=== PATIENT | male | born 1975 | race Caucasian/White ===

== ENCOUNTER 2023-05-16 08:50 | Emergency (ER) | payer MEDICARE ==
[~2023-05-16] VITALS: Ht 182.9 cm; Wt 118.9 kg
[2023-05-16 08:53] VITALS: BP 177/96; PULSE 82; TEMP 99.2; O2SAT 97
[2023-05-16 09:31] VITALS: RESP 17
[2023-05-16] MEDS ORDERED: NIRM1TAB PO (10:05)
== END 2023-05-16 10:13 | disposition home or self-care (01) ==
LOC: ER 08:53
DX: U07.1 COVID-19 (principal)
CPT/HCPCS: 36415; 87811; 99283